=== PATIENT | male | born 1975 | race Caucasian/White ===

== ENCOUNTER 2020-10-01 09:30 | Emergency (ER) | payer SELFPAY ==
[~2020-10-01 09:30] MED LIST: FLEXERIL10 MG PO; IBUPROFEN800 MG PO; KEFLEX500 MG PO; MOTRIN600 MG PO; NORVASC10 MG PO; PERCOCET 5-3251 EACH PO; PREDNISONE 10MG10 MG PO
[2020-10-01] MEDS ORDERED: TOBRAMYCIN5 ML EYELF (10:32)
== END 2020-10-01 10:49 | disposition home or self-care (01) ==
LOC: FER 09:30
DX: T15.02XA Foreign body in cornea, left eye, initial encounter (principal); F32.9 Major depressive disorder, single episode, unspecified; F41.9 Anxiety disorder, unspecified; F17.210 Nicotine dependence, cigarettes, uncomplicated; Z79.899 Other long term (current) drug therapy; W45.8XXA Other foreign body or object entering through skin, initial encounter